=== PATIENT | male | born 2000 | race Caucasian/White ===

== ENCOUNTER 2021-07-12 15:18 | Emergency (ER) | payer OTHER ==
[~2021-07-12] VITALS: Ht 162.6 cm; Wt 77.1 kg
[2021-07-12 15:23] VITALS: BP 141/73
--- NOTE | 2021-07-12 15:28 | NUR ---
PER ERMD 12 LEAD WAS DONE ON PT AND CAME BACK NSR AT 101 HR.
--- NOTE | 2021-07-12 15:28 | NUR ---
PT AMBULATED TO BED 11
--- NOTE | 2021-07-12 15:30 | NUR ---
DR. SCHRADER BEDSIDE EVALUATING PT
--- NOTE | 2021-07-12 15:40 | NUR ---
21 Y/O MALE C/O CHEST PAIN 11/14 DESCRIBES DULL THAT IS FELT IN HIS MID-CHEST AND IS NON-RADITING X2DAYS INTERMITTENT. PT STATED "AT TIMES HE FEELS LIKE HE CANNOT TAKE A DEEP BREATH, BUT DENIES SOB OVERALL." DENIES FEVER/CHILLS, DENIES N/V. DENIES TRAUMA/INJURY. BREATH SOUNDS CLEAR, EQUAL CHEST RISE AND FALL NOTED. PMH: ANXIETY, ASTHMA NKA
--- NOTE | 2021-07-12 15:40 | NUR ---
XRAY BEDSIDE WITH PATIENT
--- NOTE | 2021-07-12 16:43 | NUR ---
PT AMBUALTED TO AND FROM RESTROOM. GAIT STEADY
--- NOTE | 2021-07-12 17:02 | NUR ---
Patient discharged with v/s stable. Written and verbal after care instructions given and explained. Patient verbalized understanding. Ambulatory with steady gait. All questions addressed prior to discharge. Advised to follow up with PMD.
== END 2021-07-12 17:01 | disposition home or self-care (01) ==
LOC: MED 15:18
DX: R00.2 Palpitations (principal); T43.625A Adverse effect of amphetamines, initial encounter; F12.90 Cannabis use, unspecified, uncomplicated; Y92.89 Other specified places as the place of occurrence of the external cause
CPT/HCPCS: 71045; 93005; 99283; Q0092